=== PATIENT | male | born 1990 | race Two or more races ===

== ENCOUNTER 2022-12-15 09:56 | Emergency (ER) | payer OTHER ==
[~2022-12-15] VITALS: Ht 172.7 cm; Wt 79.5 kg
[2022-12-15] MEDS ORDERED: ACETAMINOPHEN 500 MG TABLET PO ONE (10:15)
[2022-12-15 11:00] VITALS: TEMP 98.6
[2022-12-15 12:02] VITALS: BP 122/74; PULSE 72; RESP 16
== END 2022-12-15 12:20 | disposition home or self-care (01) ==
LOC: EMS 10:01
DX: S60.445A External constriction of left ring finger, initial encounter (principal); W49.04XA Ring or other jewelry causing external constriction, initial encounter; Y93.89 Activity, other specified; Y92.89 Other specified places as the place of occurrence of the external cause; Y99.8 Other external cause status
CPT/HCPCS: 99284; Z7502; Z7610